=== PATIENT | female | born 1940 | race Caucasian/White ===

== ENCOUNTER → 2016-05-01 | Outpatient (CLI) | payer MEDICARE | END | disposition home or self-care (01) | LOC: PETCFH 08:59 | PROVIDERS: ATTEND Specialist | DX: C51.9 Malignant neoplasm of vulva, unspecified (principal); R91.1 Solitary pulmonary nodule | CPT/HCPCS: 78815; A9552 ==

== ENCOUNTER → 2016-06-14 | Outpatient (CLI) | payer MEDICARE ==
[~2016-06-14] MED LIST: CALC-488 PO; CARB15DR5 EACHEYE; CARB200T PO; CHOL20003 PO; CYANOCOBALAMIN PO; FLUT1BLS INH; GABA300C10 PO; IPRA15SP NAS; LACT10SO28 PO; LISI-167 PO; MULT1TAB60 PO; OMEG-133 PO; OXYB10TA PO; PANT40TA3 PO; PROM118S4 PO; PSYL0.5244 PO; SUCR1TAB26 PO; SULF20OR7 PO; [UNRECOGNIZED DRUG - OTHER] PO
[2016-06-14 14:37] LABS: ASPARTATE AMINO TRANSFERASE 18 U/L (15-37); BLOOD UREA NITROGEN 9 mg/dL (7-18)
== END | disposition home or self-care (01) ==
LOC: STAR 13:17
PROVIDERS: ATTEND Specialist
DX: Z01.818 Encounter for other preprocedural examination (principal); C51.9 Malignant neoplasm of vulva, unspecified; R79.1 Abnormal coagulation profile
CPT/HCPCS: 36415; 80053; 85025; 85610; 85730; 93005

== ENCOUNTER 2016-06-22 13:40 | Inpatient (IN) | payer MEDICARE ==
[~2016-06-22] VITALS: Ht 154.9 cm; Wt 79.4 kg
[2016-06-25] MEDS ORDERED: BUPIVACAINE/PF-EPI 0.25% 1:200K ONE ×2 (06:52→21:44)
[2016-06-25] MEDS ORDERED: LIDOCAINE 1%, 2ML SQ PRN (15:00)
[2016-06-25] MEDS ORDERED: LACTATED RINGERS 1,000 ML IV SCH (15:00)
[2016-06-25] MEDS ORDERED: LIDOCAINE 1%, 2ML ONE (15:02)
[2016-06-25] MEDS ORDERED: morphine SULFATE 10 MG/ML, 1ML IVPush ONE (18:00)
[2016-06-25 19:18] VITALS: BP 136/86
[2016-06-25] MEDS ORDERED: FENTANYL PF 250 MCG/5ML ONE (19:53)
[2016-06-25] MEDS ORDERED: MIDAZOLAM 1 MG/ML, 2ML ONE (19:53)
[2016-06-25] MEDS ORDERED: ONDANSETRON 2MG/ML, 2ML ONE (21:48)
[2016-06-25] MEDS ORDERED: CEFAZOLIN 1,000 MG ONE (21:48)
[2016-06-25] MEDS ORDERED: KETOROLAC 30 MG/1 ML ONE (21:48)
[2016-06-25] MEDS ORDERED: PROPOFOL 10 MG/ML, 20ML ONE (21:48)
[2016-06-25] MEDS ORDERED: LABETALOL 5MG/ML, 20ML ONE (21:48)
[2016-06-25] MEDS ORDERED: ROCURONIUM 10 MG/ML ONE (21:48)
[2016-06-25] MEDS ORDERED: DEXAMETHASONE 4 MG/ML, 1ML ONE (21:48)
[2016-06-25] MEDS ORDERED: OXYcodone 5 MG/5 ML ORAL.SOL UDC PO PRN (23:00)
[2016-06-25] MEDS ORDERED: ALBUTEROL/IPRATROPIUM 2.5MG/0.5MG, 3 ML NPPB PRN (23:00)
[2016-06-25] MEDS ORDERED: ACETAMINOPHEN 325 MG TABLET PO PRN (23:00)
[2016-06-25] MEDS ORDERED: PROMETHAZINE 25 MG/ML, 1ML IV PRN (23:00)
[2016-06-25] MEDS ORDERED: LABETALOL 5MG/ML, 20ML IV PRN (23:00)
[2016-06-25] MEDS ORDERED: hydrALAzine 20 MG/ML, 1ML IV PRN (23:00)
[2016-06-25] MEDS ORDERED: ONDANSETRON 2MG/ML, 2ML IVPush PRN (23:00)
[2016-06-25] MEDS ORDERED: MORPHINE SULFATE 4 MG/ML, 1ML ONE (23:39)
[2016-06-25] MEDS ORDERED: FENTANYL PF 100 MCG/2ML ONE (23:42)
[2016-06-25] MEDS ORDERED: HYDROmorphone 2 MG/ML, 1ML ONE (23:42)
[2016-06-26] MEDS ORDERED: BUPIVACAINE/PF-EPI 0.25% 1:200K INFIL ONE
[2016-06-26] MEDS: FENTANYL PF 100 MCG/2ML IV PRN ×3 (00:01→00:35)
[2016-06-26] MEDS: HYDROmorphone 1 MG/ML, 1ML IV PRN ×4 (00:05→00:30)
[2016-06-26] MEDS ORDERED: PROMETH/COD MC SCH (02:30)
[2016-06-26] MEDS: ONDANSETRON 2MG/ML, 2ML IV PRN (02:36)
[2016-06-26] MEDS: KETOROLAC 30 MG/1 ML IV PRN ×4 (02:36→22:27)
[2016-06-26] MEDS: LACTATED RINGERS 1,000 ML IV SCH ×3 (02:55→23:50)
[2016-06-26 03:13] VITALS: BP 91/57
[2016-06-26 05:53] LABS: BLOOD UREA NITROGEN 9 mg/dL (7-18)
[2016-06-26] MEDS: IPRATROPIUM NASAL 0.03%, 30ML NAS SCH ×4 (06:00→22:25)
[2016-06-26] MEDS: OXYcodone/APAP 5/325MG TABLET PO PRN ×3 (06:17→22:24)
[2016-06-26] MEDS ORDERED: SODIUM CHLORIDE 0.9%, 500ML IVBOLUS ONE ×2 (08:30→18:30)
[2016-06-26] MEDS: FLUTICASONE/VILANTEROL 200-25MCG/INH INH SCH (08:41)
[2016-06-26] MEDS: SUCRALFATE 1 GM/10 ML UDC PO SCH ×4 (08:42→22:25)
[2016-06-26] MEDS: CARBAMAZEPINE 200 MG TABLET PO SCH ×4 (08:46→22:26)
[2016-06-26] MEDS: PANTOPROZOLE 40MG TABLET PO SCH ×2 (08:47→22:26)
[2016-06-26] MEDS: CHOLECALCIFEROL 1,000 UNIT TABLET PO SCH (08:47)
[2016-06-26] MEDS: OXYBUTYNIN CHLORIDE 5 MG TABLET PO SCH ×2 (08:47→22:24)
[2016-06-26] MEDS: CYANOCOBALOMIN 100MCG TABLET PO SCH (08:47)
[2016-06-26] MEDS: ARTIFICIAL TEARS OPHTH SOLN 15ML EACHEYE SCH ×2 (08:48→22:25)
[2016-06-26] MEDS: GABAPENTIN 300 MG CAPSULE PO SCH ×3 (08:48→22:26)
[2016-06-26] MEDS: MULTIVITAMIN 1 TABLET PO SCH (08:48)
[2016-06-26] MEDS: OMEGA-3/FISH OIL CAPSULE PO SCH (08:48)
[2016-06-26] MEDS: PSYLLIUM PACKET PO SCH (08:49)
[2016-06-26] MEDS: CALCIUM/VITAMIN D3 250-125 TABLET PO SCH (08:49)
[2016-06-26] MEDS: LACTULOSE 20 GM/30 ML UDC PO SCH ×3 (08:49→22:25)
[2016-06-26 08:51] VITALS: BP 92/59
[2016-06-26] MEDS: LISINOPRIL 10 MG TABLET PO SCH (08:54)
[2016-06-26] MEDS: ENOXAPARIN 40 MG/0.4 ML SQ SCH (11:59)
[2016-06-26 13:19] VITALS: BP 92/54
[2016-06-26 19:32] VITALS: BP 96/58
[2016-06-27] MEDS: PROMETHAZINE/COD. 10MG/6.25MG/5 ML ORAL SOL PO SCH ×2 (00:23→23:28)
[2016-06-27 01:36] VITALS: BP 96/57
[2016-06-27 05:57] LABS: BLOOD UREA NITROGEN 7 mg/dL (7-18)
[2016-06-27] MEDS: ONDANSETRON 2MG/ML, 2ML IV PRN ×2 (06:00→21:31)
[2016-06-27] MEDS: KETOROLAC 30 MG/1 ML IV PRN ×2 (06:00→11:40)
[2016-06-27 07:53] VITALS: BP 99/60
[2016-06-27] MEDS: OXYcodone/APAP 5/325MG TABLET PO PRN ×3 (08:04→21:46)
[2016-06-27] MEDS: SUCRALFATE 1 GM/10 ML UDC PO SCH ×4 (08:04→21:46)
[2016-06-27] MEDS: ARTIFICIAL TEARS OPHTH SOLN 15ML EACHEYE SCH ×2 (08:05→21:00)
[2016-06-27] MEDS: IPRATROPIUM NASAL 0.03%, 30ML NAS SCH ×4 (08:05→21:00)
[2016-06-27] MEDS: MULTIVITAMIN 1 TABLET PO SCH (08:06)
[2016-06-27] MEDS: OMEGA-3/FISH OIL CAPSULE PO SCH (08:06)
[2016-06-27] MEDS: PSYLLIUM PACKET PO SCH (08:06)
[2016-06-27] MEDS: LISINOPRIL 10 MG TABLET PO SCH (08:06)
[2016-06-27] MEDS: FLUTICASONE/VILANTEROL 200-25MCG/INH INH SCH (08:06)
[2016-06-27] MEDS: CALCIUM/VITAMIN D3 250-125 TABLET PO SCH (08:06)
[2016-06-27] MEDS: OXYBUTYNIN CHLORIDE 5 MG TABLET PO SCH ×2 (08:07→21:46)
[2016-06-27] MEDS: CARBAMAZEPINE 200 MG TABLET PO SCH ×4 (08:07→21:46)
[2016-06-27] MEDS: LACTULOSE 20 GM/30 ML UDC PO SCH ×3 (08:07→21:45)
[2016-06-27] MEDS: PANTOPROZOLE 40MG TABLET PO SCH ×2 (08:08→21:46)
[2016-06-27] MEDS: CHOLECALCIFEROL 1,000 UNIT TABLET PO SCH (08:08)
[2016-06-27] MEDS: GABAPENTIN 300 MG CAPSULE PO SCH ×3 (08:08→21:46)
[2016-06-27] MEDS: CYANOCOBALOMIN 100MCG TABLET PO SCH (08:08)
[2016-06-27] MEDS: ENOXAPARIN 40 MG/0.4 ML SQ SCH (12:12)
[2016-06-27] MEDS: LACTATED RINGERS 1,000 ML IV SCH (12:49)
[2016-06-27 13:54] VITALS: BP 103/62
[2016-06-27 18:27] VITALS: BP 120/66
[2016-06-28 02:20] VITALS: BP 105/67
[2016-06-28] MEDS: PROMETHAZINE 25 MG/ML, 1ML IM PRN ×2 (02:27→08:20)
[2016-06-28] MEDS: LACTATED RINGERS 1,000 ML IV SCH ×2 (04:25→22:24)
[2016-06-28] MEDS: IPRATROPIUM NASAL 0.03%, 30ML NAS SCH ×4 (06:00→22:23)
[2016-06-28] MEDS: ONDANSETRON 2MG/ML, 2ML IV PRN ×2 (06:47→22:24)
[2016-06-28 07:27] VITALS: BP 104/66
[2016-06-28] MEDS: OXYBUTYNIN CHLORIDE 5 MG TABLET PO SCH ×3 (08:00→22:25)
[2016-06-28] MEDS: SUCRALFATE 1 GM/10 ML UDC PO SCH ×5 (08:00→22:25)
[2016-06-28] MEDS: GABAPENTIN 300 MG CAPSULE PO SCH ×4 (08:00→22:25)
[2016-06-28] MEDS: PANTOPROZOLE 40MG TABLET PO SCH ×3 (08:00→22:25)
[2016-06-28] MEDS: PSYLLIUM PACKET PO SCH ×2 (08:00→08:08)
[2016-06-28] MEDS: CARBAMAZEPINE 200 MG TABLET PO SCH ×5 (08:00→22:26)
[2016-06-28] MEDS: LACTULOSE 20 GM/30 ML UDC PO SCH ×4 (08:00→22:25)
[2016-06-28] MEDS: CYANOCOBALOMIN 100MCG TABLET PO SCH ×2 (08:00→08:07)
[2016-06-28] MEDS: MULTIVITAMIN 1 TABLET PO SCH ×2 (08:00→08:07)
[2016-06-28] MEDS: OMEGA-3/FISH OIL CAPSULE PO SCH ×2 (08:00→08:06)
[2016-06-28] MEDS: CHOLECALCIFEROL 1,000 UNIT TABLET PO SCH ×2 (08:00→08:06)
[2016-06-28] MEDS: CALCIUM/VITAMIN D3 250-125 TABLET PO SCH ×2 (08:00→08:08)
[2016-06-28] MEDS: LISINOPRIL 10 MG TABLET PO SCH (08:07)
[2016-06-28] MEDS: ARTIFICIAL TEARS OPHTH SOLN 15ML EACHEYE SCH ×2 (08:09→22:23)
[2016-06-28] MEDS: FLUTICASONE/VILANTEROL 200-25MCG/INH INH SCH (08:09)
[2016-06-28] MEDS: ENOXAPARIN 40 MG/0.4 ML SQ SCH (12:09)
[2016-06-28 14:02] VITALS: BP 122/72
[2016-06-28 20:47] VITALS: BP 107/67
[2016-06-28] MEDS: KETOROLAC 30 MG/1 ML IV PRN (22:24)
[2016-06-28] MEDS: PROMETHAZINE/COD. 10MG/6.25MG/5 ML ORAL SOL PO SCH (22:25)
[2016-06-28] MEDS: FAMOTIDINE 20 MG TABLET PO SCH (22:25)
[2016-06-29 02:17] VITALS: BP 100/65
[2016-06-29] MEDS: SUCRALFATE 1 GM/10 ML UDC PO SCH ×4 (05:41→21:42)
[2016-06-29] MEDS: CARBAMAZEPINE 200 MG TABLET PO SCH ×4 (05:41→21:44)
[2016-06-29] MEDS: IPRATROPIUM NASAL 0.03%, 30ML NAS SCH ×4 (06:07→21:51)
[2016-06-29 08:05] VITALS: BP 124/65
[2016-06-29] MEDS: LACTULOSE 20 GM/30 ML UDC PO SCH ×3 (08:48→21:43)
[2016-06-29] MEDS: PSYLLIUM PACKET PO SCH (08:48)
[2016-06-29] MEDS: OMEGA-3/FISH OIL CAPSULE PO SCH (08:48)
[2016-06-29] MEDS: OXYBUTYNIN CHLORIDE 5 MG TABLET PO SCH ×2 (08:48→21:43)
[2016-06-29] MEDS: FAMOTIDINE 20 MG TABLET PO SCH ×2 (08:49→21:43)
[2016-06-29] MEDS: LISINOPRIL 10 MG TABLET PO SCH (08:49)
[2016-06-29] MEDS: MULTIVITAMIN 1 TABLET PO SCH (08:49)
[2016-06-29] MEDS: GABAPENTIN 300 MG CAPSULE PO SCH ×3 (08:49→21:43)
[2016-06-29] MEDS: CALCIUM/VITAMIN D3 250-125 TABLET PO SCH (08:49)
[2016-06-29] MEDS: CYANOCOBALOMIN 100MCG TABLET PO SCH (08:49)
[2016-06-29] MEDS: PANTOPROZOLE 40MG TABLET PO SCH ×2 (08:49→21:44)
[2016-06-29] MEDS: CHOLECALCIFEROL 1,000 UNIT TABLET PO SCH (08:49)
[2016-06-29] MEDS: ARTIFICIAL TEARS OPHTH SOLN 15ML EACHEYE SCH ×2 (08:54→21:49)
[2016-06-29] MEDS: FLUTICASONE/VILANTEROL 200-25MCG/INH INH SCH (08:54)
[2016-06-29] MEDS: LACTATED RINGERS 1,000 ML IV SCH ×2 (10:22→20:05)
[2016-06-29] MEDS: ENOXAPARIN 40 MG/0.4 ML SQ SCH (11:35)
[2016-06-29] MEDS: ONDANSETRON 2MG/ML, 2ML IV PRN (11:40)
[2016-06-29 13:35] VITALS: BP 122/65
[2016-06-29] MEDS: KETOROLAC 30 MG/1 ML IV PRN ×2 (13:39→19:57)
[2016-06-29 21:25] VITALS: BP 121/72
[2016-06-29] MEDS: PROMETHAZINE/COD. 10MG/6.25MG/5 ML ORAL SOL PO SCH (21:43)
[2016-06-29] MEDS: FAMOTIDINE 20 MG/2 ML IVPush SCH (21:48)
[2016-06-30] MEDS: KETOROLAC 30 MG/1 ML IV PRN ×4 (02:15→21:05)
[2016-06-30 03:34] VITALS: BP 106/67
[2016-06-30 05:20] LABS: BLOOD UREA NITROGEN 14 mg/dL (7-18)
[2016-06-30] MEDS: SUCRALFATE 1 GM/10 ML UDC PO SCH ×4 (05:36→21:00)
[2016-06-30] MEDS: CARBAMAZEPINE 200 MG TABLET PO SCH ×4 (05:36→21:00)
[2016-06-30] MEDS: LACTATED RINGERS 1,000 ML IV SCH ×2 (05:39→16:17)
[2016-06-30] MEDS: IPRATROPIUM NASAL 0.03%, 30ML NAS SCH ×4 (05:40→21:00)
[2016-06-30 06:50] VITALS: BP 128/69
[2016-06-30] MEDS: MULTIVITAMIN 1 TABLET PO SCH (08:18)
[2016-06-30] MEDS: OMEGA-3/FISH OIL CAPSULE PO SCH (08:18)
[2016-06-30] MEDS: PSYLLIUM PACKET PO SCH (08:18)
[2016-06-30] MEDS: LISINOPRIL 10 MG TABLET PO SCH (08:18)
[2016-06-30] MEDS: CALCIUM/VITAMIN D3 250-125 TABLET PO SCH (08:18)
[2016-06-30] MEDS: GABAPENTIN 300 MG CAPSULE PO SCH ×3 (08:18→21:00)
[2016-06-30] MEDS: OXYBUTYNIN CHLORIDE 5 MG TABLET PO SCH ×2 (08:18→21:00)
[2016-06-30] MEDS: FAMOTIDINE 20 MG TABLET PO SCH ×2 (08:18→21:00)
[2016-06-30] MEDS: LACTULOSE 20 GM/30 ML UDC PO SCH ×3 (08:18→21:00)
[2016-06-30] MEDS: CHOLECALCIFEROL 1,000 UNIT TABLET PO SCH (08:19)
[2016-06-30] MEDS: PANTOPROZOLE 40MG TABLET PO SCH ×2 (08:19→21:00)
[2016-06-30] MEDS: CYANOCOBALOMIN 100MCG TABLET PO SCH (08:19)
[2016-06-30] MEDS: FLUTICASONE/VILANTEROL 200-25MCG/INH INH SCH (08:27)
[2016-06-30] MEDS: ARTIFICIAL TEARS OPHTH SOLN 15ML EACHEYE SCH ×2 (08:27→21:00)
[2016-06-30] MEDS: FAMOTIDINE 20 MG/2 ML IVPush SCH ×2 (08:32→21:05)
[2016-06-30] MEDS: ONDANSETRON 2MG/ML, 2ML IV PRN (11:11)
[2016-06-30] MEDS: ENOXAPARIN 40 MG/0.4 ML SQ SCH (12:12)
[2016-06-30 12:50] VITALS: BP 119/68
[2016-06-30 20:36] VITALS: BP 123/59
[2016-06-30] MEDS: PROMETHAZINE/COD. 10MG/6.25MG/5 ML ORAL SOL PO SCH (21:00)
[2016-07-01 01:22] VITALS: BP 124/61
[2016-07-01] MEDS: LACTATED RINGERS 1,000 ML IV SCH ×3 (01:36→22:10)
[2016-07-01] MEDS: KETOROLAC 30 MG/1 ML IVPush PRN ×3 (03:32→18:58)
[2016-07-01] MEDS: SUCRALFATE 1 GM/10 ML UDC PO SCH ×4 (06:00→21:55)
[2016-07-01] MEDS: IPRATROPIUM NASAL 0.03%, 30ML NAS SCH ×4 (06:00→21:55)
[2016-07-01] MEDS: CARBAMAZEPINE 200 MG TABLET PO SCH ×4 (06:00→21:56)
[2016-07-01] MEDS: FAMOTIDINE 20 MG/2 ML IVPush SCH ×2 (08:14→21:55)
[2016-07-01] MEDS: FLUTICASONE/VILANTEROL 200-25MCG/INH INH SCH (08:14)
[2016-07-01] MEDS: ARTIFICIAL TEARS OPHTH SOLN 15ML EACHEYE SCH ×2 (08:14→21:55)
[2016-07-01] MEDS: PANTOPROZOLE 40MG TABLET PO SCH ×2 (09:00→21:56)
[2016-07-01] MEDS: OXYBUTYNIN CHLORIDE 5 MG TABLET PO SCH ×2 (09:00→21:56)
[2016-07-01] MEDS: CYANOCOBALOMIN 100MCG TABLET PO SCH (09:00)
[2016-07-01] MEDS: FAMOTIDINE 20 MG TABLET PO SCH ×2 (09:00→21:56)
[2016-07-01] MEDS: PSYLLIUM PACKET PO SCH (09:00)
[2016-07-01] MEDS: CHOLECALCIFEROL 1,000 UNIT TABLET PO SCH (09:00)
[2016-07-01] MEDS: LACTULOSE 20 GM/30 ML UDC PO SCH ×3 (09:00→23:36)
[2016-07-01] MEDS: CALCIUM/VITAMIN D3 250-125 TABLET PO SCH (09:00)
[2016-07-01] MEDS: GABAPENTIN 300 MG CAPSULE PO SCH ×3 (09:00→21:56)
[2016-07-01] MEDS: MULTIVITAMIN 1 TABLET PO SCH (09:00)
[2016-07-01] MEDS: OMEGA-3/FISH OIL CAPSULE PO SCH (09:00)
[2016-07-01] MEDS: LISINOPRIL 10 MG TABLET PO SCH (09:00)
[2016-07-01 09:02] VITALS: BP 123/70
[2016-07-01] MEDS: ENOXAPARIN 40 MG/0.4 ML SQ SCH (12:03)
[2016-07-01 13:49] VITALS: BP 119/67
[2016-07-01 19:48] VITALS: BP 108/63
[2016-07-01] MEDS: PROMETHAZINE/COD. 10MG/6.25MG/5 ML ORAL SOL PO SCH (23:36)
[2016-07-02] MEDS: KETOROLAC 30 MG/1 ML IVPush PRN ×3 (01:20→17:24)
[2016-07-02 03:41] VITALS: BP 131/74
[2016-07-02] MEDS: CARBAMAZEPINE 200 MG TABLET PO SCH ×4 (05:07→20:39)
[2016-07-02] MEDS: SUCRALFATE 1 GM/10 ML UDC PO SCH ×4 (05:07→20:38)
[2016-07-02] MEDS: IPRATROPIUM NASAL 0.03%, 30ML NAS SCH ×4 (05:07→20:38)
[2016-07-02 07:57] VITALS: BP 129/69
[2016-07-02] MEDS: PSYLLIUM PACKET PO SCH (09:00)
[2016-07-02] MEDS: OXYBUTYNIN CHLORIDE 5 MG TABLET PO SCH ×2 (09:00→20:38)
[2016-07-02] MEDS: OMEGA-3/FISH OIL CAPSULE PO SCH (09:00)
[2016-07-02] MEDS: MULTIVITAMIN 1 TABLET PO SCH (09:00)
[2016-07-02] MEDS: FAMOTIDINE 20 MG TABLET PO SCH ×2 (09:00→20:38)
[2016-07-02] MEDS: CYANOCOBALOMIN 100MCG TABLET PO SCH (09:00)
[2016-07-02] MEDS: CHOLECALCIFEROL 1,000 UNIT TABLET PO SCH (09:00)
[2016-07-02] MEDS: CALCIUM/VITAMIN D3 250-125 TABLET PO SCH (09:00)
[2016-07-02] MEDS: GABAPENTIN 300 MG CAPSULE PO SCH ×3 (09:00→20:38)
[2016-07-02] MEDS: LISINOPRIL 10 MG TABLET PO SCH (09:00)
[2016-07-02] MEDS: PANTOPROZOLE 40MG TABLET PO SCH ×2 (09:00→20:38)
[2016-07-02] MEDS: LACTULOSE 20 GM/30 ML UDC PO SCH ×3 (09:49→20:38)
[2016-07-02] MEDS: FAMOTIDINE 20 MG/2 ML IVPush SCH ×2 (09:50→23:50)
[2016-07-02] MEDS: FLUTICASONE/VILANTEROL 200-25MCG/INH INH SCH (09:50)
[2016-07-02] MEDS: ARTIFICIAL TEARS OPHTH SOLN 15ML EACHEYE SCH ×2 (09:51→20:33)
[2016-07-02] MEDS: LACTATED RINGERS 1,000 ML IV SCH ×2 (10:12→20:32)
[2016-07-02] MEDS: ENOXAPARIN 40 MG/0.4 ML SQ SCH (12:07)
[2016-07-02 13:23] VITALS: BP 124/70
[2016-07-02 18:59] VITALS: BP 124/74
[2016-07-02] MEDS: PROMETHAZINE/COD. 10MG/6.25MG/5 ML ORAL SOL PO SCH (23:50)
[2016-07-03] MEDS: KETOROLAC 30 MG/1 ML IVPush PRN (00:02)
[2016-07-03 01:53] VITALS: BP 128/74
[2016-07-03] MEDS: OXYcodone/APAP 5/325MG TABLET PO PRN ×3 (02:02→15:36)
[2016-07-03] MEDS: LACTATED RINGERS 1,000 ML IV SCH ×2 (06:26→17:09)
[2016-07-03 08:00] VITALS: BP 126/71
[2016-07-03] MEDS: FAMOTIDINE 20 MG/2 ML IVPush SCH (09:00)
[2016-07-03] MEDS: OMEGA-3/FISH OIL CAPSULE PO SCH (09:00)
[2016-07-03] MEDS: LISINOPRIL 10 MG TABLET PO SCH (09:00)
[2016-07-03] MEDS: PSYLLIUM PACKET PO SCH (09:00)
[2016-07-03] MEDS: MULTIVITAMIN 1 TABLET PO SCH (09:00)
[2016-07-03] MEDS: CHOLECALCIFEROL 1,000 UNIT TABLET PO SCH (09:00)
[2016-07-03] MEDS: LACTULOSE 20 GM/30 ML UDC PO SCH ×3 (09:00→21:00)
[2016-07-03] MEDS: CARBAMAZEPINE 200 MG TABLET PO SCH ×4 (09:24→21:00)
[2016-07-03] MEDS: CALCIUM/VITAMIN D3 250-125 TABLET PO SCH (09:24)
[2016-07-03] MEDS: CYANOCOBALOMIN 100MCG TABLET PO SCH (09:24)
[2016-07-03] MEDS: FAMOTIDINE 20 MG TABLET PO SCH (09:24)
[2016-07-03] MEDS: OXYBUTYNIN CHLORIDE 5 MG TABLET PO SCH ×2 (09:25→21:00)
[2016-07-03] MEDS: GABAPENTIN 300 MG CAPSULE PO SCH ×3 (09:25→21:00)
[2016-07-03] MEDS: SUCRALFATE 1 GM/10 ML UDC PO SCH ×4 (09:25→21:00)
[2016-07-03] MEDS: IPRATROPIUM NASAL 0.03%, 30ML NAS SCH ×4 (09:25→21:00)
[2016-07-03] MEDS: FLUTICASONE/VILANTEROL 200-25MCG/INH INH SCH (09:26)
[2016-07-03] MEDS: ARTIFICIAL TEARS OPHTH SOLN 15ML EACHEYE SCH ×2 (09:26→21:00)
[2016-07-03] MEDS: PANTOPROZOLE 40MG TABLET PO SCH ×2 (09:27→21:00)
[2016-07-03 10:12] LABS: BLOOD UREA NITROGEN 3 mg/dL (7-18)
[2016-07-03] MEDS: ENOXAPARIN 40 MG/0.4 ML SQ SCH (11:41)
[2016-07-03 13:21] VITALS: BP 102/63
[2016-07-04] MEDS: FAMOTIDINE 20 MG/2 ML IVPush SCH ×3 (00:37→21:41)
[2016-07-04] MEDS: PROMETHAZINE/COD. 10MG/6.25MG/5 ML ORAL SOL PO SCH ×2 (00:38→21:41)
[2016-07-04] MEDS: FAMOTIDINE 20 MG TABLET PO SCH ×3 (00:38→21:00)
[2016-07-04] MEDS: LACTATED RINGERS 1,000 ML IV SCH ×3 (01:50→13:37)
[2016-07-04 02:32] VITALS: BP 127/68
[2016-07-04 06:50] VITALS: BP 129/73
[2016-07-04] MEDS: FLUTICASONE/VILANTEROL 200-25MCG/INH INH SCH (08:42)
[2016-07-04] MEDS: ARTIFICIAL TEARS OPHTH SOLN 15ML EACHEYE SCH ×2 (08:43→21:00)
[2016-07-04] MEDS: IPRATROPIUM NASAL 0.03%, 30ML NAS SCH ×4 (08:43→21:00)
[2016-07-04] MEDS: SUCRALFATE 1 GM/10 ML UDC PO SCH ×4 (08:44→21:41)
[2016-07-04] MEDS: CARBAMAZEPINE 200 MG TABLET PO SCH ×4 (08:46→21:42)
[2016-07-04] MEDS: LISINOPRIL 10 MG TABLET PO SCH (08:46)
[2016-07-04] MEDS: LACTULOSE 20 GM/30 ML UDC PO SCH ×3 (08:46→21:00)
[2016-07-04] MEDS: GABAPENTIN 300 MG CAPSULE PO SCH ×3 (08:46→21:43)
[2016-07-04] MEDS: MULTIVITAMIN 1 TABLET PO SCH (08:47)
[2016-07-04] MEDS: OMEGA-3/FISH OIL CAPSULE PO SCH (08:48)
[2016-07-04] MEDS: CALCIUM/VITAMIN D3 250-125 TABLET PO SCH (08:48)
[2016-07-04] MEDS: PANTOPROZOLE 40MG TABLET PO SCH ×2 (08:48→21:42)
[2016-07-04] MEDS: OXYBUTYNIN CHLORIDE 5 MG TABLET PO SCH ×2 (08:48→21:43)
[2016-07-04] MEDS: CHOLECALCIFEROL 1,000 UNIT TABLET PO SCH (08:49)
[2016-07-04] MEDS: PSYLLIUM PACKET PO SCH (08:49)
[2016-07-04] MEDS: CYANOCOBALOMIN 100MCG TABLET PO SCH (08:49)
[2016-07-04 12:21] VITALS: BP 120/72
[2016-07-04] MEDS: ENOXAPARIN 40 MG/0.4 ML SQ SCH (12:34)
[2016-07-04] MEDS: POTASSIUM CHLORIDE 20 MEQ TAB.ER.PRT PO SCH ×2 (17:15→21:42)
[2016-07-04 19:20] VITALS: BP 116/73
[2016-07-05 01:39] VITALS: BP 126/72
[2016-07-05 05:35] LABS: BLOOD UREA NITROGEN 6 mg/dL (7-18)
[2016-07-05] MEDS: IPRATROPIUM NASAL 0.03%, 30ML NAS SCH ×2 (06:00→11:00)
[2016-07-05] MEDS: CARBAMAZEPINE 200 MG TABLET PO SCH ×2 (06:27→10:27)
[2016-07-05] MEDS: SUCRALFATE 1 GM/10 ML UDC PO SCH ×2 (06:27→10:29)
[2016-07-05 08:55] VITALS: BP 108/58
[2016-07-05] MEDS: ARTIFICIAL TEARS OPHTH SOLN 15ML EACHEYE SCH (09:00)
[2016-07-05] MEDS: LACTATED RINGERS 1,000 ML IV SCH (10:26)
[2016-07-05] MEDS: FLUTICASONE/VILANTEROL 200-25MCG/INH INH SCH (10:26)
[2016-07-05] MEDS: OMEGA-3/FISH OIL CAPSULE PO SCH (10:27)
[2016-07-05] MEDS: FAMOTIDINE 20 MG TABLET PO SCH (10:27)
[2016-07-05] MEDS: CALCIUM/VITAMIN D3 250-125 TABLET PO SCH (10:27)
[2016-07-05] MEDS: PANTOPROZOLE 40MG TABLET PO SCH (10:27)
[2016-07-05] MEDS: GABAPENTIN 300 MG CAPSULE PO SCH (10:27)
[2016-07-05] MEDS: OXYBUTYNIN CHLORIDE 5 MG TABLET PO SCH (10:27)
[2016-07-05] MEDS: CHOLECALCIFEROL 1,000 UNIT TABLET PO SCH (10:27)
[2016-07-05] MEDS: POTASSIUM CHLORIDE 20 MEQ TAB.ER.PRT PO SCH (10:27)
[2016-07-05] MEDS: FAMOTIDINE 20 MG/2 ML IVPush SCH (10:28)
[2016-07-05] MEDS: MULTIVITAMIN 1 TABLET PO SCH (10:28)
[2016-07-05] MEDS: LISINOPRIL 10 MG TABLET PO SCH (10:28)
[2016-07-05] MEDS: LACTULOSE 20 GM/30 ML UDC PO SCH (10:28)
[2016-07-05] MEDS: PSYLLIUM PACKET PO SCH (10:28)
[2016-07-05] MEDS: CYANOCOBALOMIN 100MCG TABLET PO SCH (10:28)
[2016-07-05] MEDS: ENOXAPARIN 40 MG/0.4 ML SQ SCH (10:34)
[2016-07-05] MEDS ORDERED: OXYC1TAB7 PO (12:36)
[2016-07-05] MEDS ORDERED: ONDA-39 PO (12:38)
[2016-07-05 13:35] VITALS: BP 129/72
== END 2016-07-05 14:19 | disposition home health service (06) | DRG 746 ==
LOC: ORIP 06-25 13:01 → 4NOR 06-25 17:50
PROVIDERS: ADMIT Specialist; ATTEND Specialist
PROC: 0UT Female Reproductive System, Resection (ICD-10-PCS; 2016-06-25)
PROC: 07BJ0ZX Excision of Left Inguinal Lymphatic, Open Approach, Diagnostic (ICD-10-PCS; 2016-06-25)
PROC: 0UTM0ZZ Resection of Vulva, Open Approach (ICD-10-PCS; principal; 2016-06-25 19:00)
DX: C51.9 Malignant neoplasm of vulva, unspecified (principal); K56.7 Ileus, unspecified; E87.6 Hypokalemia; F32.9 Major depressive disorder, single episode, unspecified; J45.909 Unspecified asthma, uncomplicated; K21.9 Gastro-esophageal reflux disease without esophagitis; I10 Essential (primary) hypertension; Z87.891 Personal history of nicotine dependence
CPT/HCPCS: 36415; 71010; 74000; 80048; 85025; 86850; 86900; 86923; 88305; 88307; C1729; J0690; J1100; J1170; J1650; J1885; J2250; J2405; J2550; J2704; J3010; J3490; J2270; J7040; J7120; S0028

== ENCOUNTER → 2016-11-13 | Outpatient (CLI) | payer MEDICARE ==
[~2016-11-13] MED LIST changes: +CHOL2000 PO; -CHOL20003 PO; +ONDA4TAB12 PO; +OXYC1TAB7 PO; -SUCR1TAB26 PO; +SUCR1TAB33 PO
== END | disposition home or self-care (01) ==
LOC: CFH 14:32
PROVIDERS: ATTEND Internal Medicine
DX: R22.32 Localized swelling, mass and lump, left upper limb (principal); I82.432 Acute embolism and thrombosis of left popliteal vein

== ENCOUNTER → 2017-01-02 | Outpatient (CLI) | payer MEDICARE ==
[~2017-01-02] MED LIST changes: +LIDOCAINE 1%, 20ML ONE
== END | disposition home or self-care (01) ==
LOC: RAD 07:14 → EDSTATUS 07:30
PROVIDERS: ATTEND Specialist
DX: R59.9 Enlarged lymph nodes, unspecified (principal)
CPT/HCPCS: 10160; 38505; 76942; 87015; 87070; 87075; 87102; 87116; 87205; 87206; 88112; 88305; J3490

== ENCOUNTER → 2017-01-14 | Outpatient (CLI) | payer MEDICARE ==
[~2017-01-14] MED LIST changes: +AMOX1TAB64 PO; +ASCO500T12 PO; +ASCO500T8 PO; -LIDOCAINE 1%, 20ML ONE; +WARF5TAB7 PO
== END ==
LOC: RAD 17:14
PROVIDERS: ATTEND Internal Medicine
DX: R19.09 Other intra-abdominal and pelvic swelling, mass and lump (principal); R91.1 Solitary pulmonary nodule; Z85.44 Personal history of malignant neoplasm of other female genital organs
CPT/HCPCS: 74176

== ENCOUNTER 2017-01-23 16:46 | Inpatient (IN) | payer MEDICARE ==
[~2017-01-23] VITALS: Ht 157.5 cm; Wt 75.3 kg
[~2017-01-23 16:46] MED LIST changes: -ASCO500T12 PO
[2017-01-23] MEDS ORDERED: MORPHINE SULFATE 4 MG/ML, 1ML IVPush PRN (17:00)
[2017-01-23] MEDS ORDERED: SODIUM CHLORIDE FLUSH 10ML SYR IVF ONE (17:00)
[2017-01-23] MEDS ORDERED: ONDANSETRON 2MG/ML, 2ML IVPush ONE (17:00)
[2017-01-23] MEDS ORDERED: ONDANSETRON 2MG/ML, 2ML ONE (17:32)
[2017-01-23] MEDS ORDERED: MORPHINE SULFATE 4 MG/ML, 1ML ONE (17:32)
[2017-01-23 17:34] LABS: INTERNATIONAL NORMALIZED RATIO 2.38 (0.93-1.1); PROTHROMBIN TIME 24.1 Seconds (9.6-11.5)
[2017-01-23 17:38] LABS: ALBUMIN 2.6 g/dL (3.4-5.0); ANION GAP 9 mmol/L (5-15); CALCIUM 11.7 mg/dL (8.5-10.1); CHLORIDE 103 mmol/L (98-107); MEAN CORPUSCULAR HEMOGLOBIN 24.5 pg (27.0-34.8); MEAN CORPUSCULAR HGB CONC 31.3 g/dL (32.4-35.8); MEAN CORPUSCULAR VOLUME 78.3 fL (80-100); MEAN PLATELET VOLUME 7.4 fL (7.4-10.4); PLATELET COUNT 569 x10^3/uL (130-400); RED BLOOD COUNT 4.46 x10^6/uL (3.82-5.3); RED CELL DISTRIBUTION WIDTH 20.3 % (9.6-15.2)
[2017-01-23 17:57] LABS: BASOPHILS # (AUTO) 0.11 x10^3/uL (0-0.1); BASOPHILS % (AUTO) 1 % (0-1); EOSINOPHILS # (AUTO) 0.09 x10^3/uL (0-0.4); EOSINOPHILS % (AUTO) 1 % (1-7); LYMPHOCYTES # (AUTO) 1.72 x10^3/uL (1-3.4); LYMPHOCYTES % (AUTO) 13 % (22-44); MD MORPH REVIEW ONLY; MONOCYTES % (AUTO) 4 % (2-9); NEUTROPHILS # (AUTO) 10.37 x10^3/uL (1.8-6.8); NEUTROPHILS % (AUTO) 81 % (42-75)
[2017-01-23 17:59] LABS: <PLATELET ESTIMATE> INCREASED; <PLT MORPHOLOGY> NORMAL PLT MORPH; ANISOCYTOSIS 1+; MICROCYTOSIS 1+; POLYCHROMASIA 1+
[2017-01-23] MEDS ORDERED: AMPICILLIN/SULBACTAM 3 GM in SODIUM CHLORIDE 0.9% 100 ML IV ONE (18:00)
[2017-01-23] MEDS ORDERED: ASCO500T12 PO (18:29)
[2017-01-23] MEDS ORDERED: DOCUSATE 100 MG CAPSULE PO PRN (19:30)
[2017-01-23] MEDS ORDERED: ONDANSETRON ODT 4 MG PO PRN (19:30)
[2017-01-23] MEDS ORDERED: ENALAPRILAT 1.25 MG/ML, 2ML IVPush PRN (19:30)
[2017-01-23] MEDS ORDERED: OXYcodone/APAP 5/325MG TABLET ONE (20:44)
[2017-01-23] MEDS: OXYcodone/APAP 5/325MG TABLET PO SCH (20:59)
[2017-01-23] MEDS ORDERED: WARFARIN 5 MG TABLET PO-COUM SCH (21:00)
[2017-01-23] MEDS ORDERED: PANTOPROZOLE 40MG TABLET PO SCH (21:00)
[2017-01-23 21:37] VITALS: BP 156/84
[2017-01-24] MEDS: SUCRALFATE 1 GM TABLET PO SCH ×5 (00:35→22:20)
[2017-01-24] MEDS: LACTULOSE 10 GM/15 ML UDC PO SCH ×4 (00:35→22:20)
[2017-01-24] MEDS: GABAPENTIN 300 MG CAPSULE PO SCH ×4 (00:35→22:19)
[2017-01-24] MEDS: OXYBUTYNIN CHLORIDE 5 MG TABLET PO SCH ×3 (00:36→22:19)
[2017-01-24] MEDS: OXYcodone/APAP 5/325MG TABLET PO SCH ×6 (00:39→22:19)
[2017-01-24 03:41] VITALS: BP 136/76
[2017-01-24 05:13] LABS: ANION GAP 6 mmol/L (5-15); CALCIUM 11.9 mg/dL (8.5-10.1); CHLORIDE 108 mmol/L (98-107); CREATININE 0.74 mg/dL (0.55-1.02)
[2017-01-24 05:30] LABS: MEAN CORPUSCULAR HEMOGLOBIN 24.7 pg (27.0-34.8); MEAN CORPUSCULAR HGB CONC 31.2 g/dL (32.4-35.8); MEAN CORPUSCULAR VOLUME 79.1 fL (80-100); MEAN PLATELET VOLUME 7.3 fL (7.4-10.4); PLATELET COUNT 476 x10^3/uL (130-400); RED CELL DISTRIBUTION WIDTH 20.1 % (9.6-15.2)
[2017-01-24 05:56] LABS: BASOPHILS # (AUTO) 0.11 x10^3/uL (0-0.1); BASOPHILS % (AUTO) 1 % (0-1); EOSINOPHILS % (AUTO) 2 % (1-7); LYMPHOCYTES # (AUTO) 2.11 x10^3/uL (1-3.4); LYMPHOCYTES % (AUTO) 20 % (22-44); MD SCAN; MONOCYTES # (AUTO) 0.91 x10^3/uL (0.2-0.8); MONOCYTES % (AUTO) 9 % (2-9); NEUTROPHILS # (AUTO) 7.11 x10^3/uL (1.8-6.8); NEUTROPHILS % (AUTO) 68 % (42-75)
[2017-01-24 07:18] VITALS: BP 100/60
[2017-01-24] MEDS: CALCIUM CARBONATE 500 MG TABLET PO SCH ×2 (07:57→16:58)
[2017-01-24] MEDS: PANTOPROZOLE 40MG TABLET PO SCH ×2 (07:57→16:58)
[2017-01-24] MEDS: FLUTICASONE/VILANTEROL 200-25MCG/INH INH SCH (09:00)
[2017-01-24] MEDS: AMOXICILLIN/CLAV 875-125MG TABLET PO SCH ×2 (10:01→22:19)
[2017-01-24] MEDS: CHOLECALCIFEROL 1,000 UNIT TABLET PO SCH (10:02)
[2017-01-24] MEDS: MULTIVITAMIN 1 TABLET PO SCH (10:02)
[2017-01-24] MEDS: ASCORBIC ACID 500 MG TABLET PO SCH (10:03)
[2017-01-24 14:45] VITALS: BP 123/78
[2017-01-24] MEDS ORDERED: WARFARIN 5 MG TABLET PO-COUM SCH (18:00)
[2017-01-24 19:45] VITALS: BP 127/68
[2017-01-25 00:20] VITALS: BP 119/67
[2017-01-25] MEDS: OXYcodone/APAP 5/325MG TABLET PO SCH ×5 (02:15→17:51)
[2017-01-25 04:59] LABS: INTERNATIONAL NORMALIZED RATIO 2.43 (0.93-1.1); PROTHROMBIN TIME 24.6 Seconds (9.6-11.5)
[2017-01-25] MEDS: SUCRALFATE 1 GM TABLET PO SCH ×3 (05:41→16:00)
[2017-01-25 08:00] VITALS: BP 133/74
[2017-01-25] MEDS: SODIUM CHLORIDE 0.9% 1,000 ML IV SCH ×2 (08:33→16:00)
[2017-01-25] MEDS: LACTULOSE 10 GM/15 ML UDC PO SCH ×2 (08:33→16:00)
[2017-01-25] MEDS: CHOLECALCIFEROL 1,000 UNIT TABLET PO SCH (08:34)
[2017-01-25] MEDS: ASCORBIC ACID 500 MG TABLET PO SCH (08:34)
[2017-01-25] MEDS: MULTIVITAMIN 1 TABLET PO SCH (08:35)
[2017-01-25] MEDS: GABAPENTIN 300 MG CAPSULE PO SCH ×2 (08:35→16:52)
[2017-01-25] MEDS: OXYBUTYNIN CHLORIDE 5 MG TABLET PO SCH (08:35)
[2017-01-25] MEDS: PANTOPROZOLE 40MG TABLET PO SCH ×2 (08:36→16:54)
[2017-01-25] MEDS: FLUTICASONE/VILANTEROL 200-25MCG/INH INH SCH (08:37)
[2017-01-25] MEDS: AMOXICILLIN/CLAV 875-125MG TABLET PO SCH (08:37)
[2017-01-25 14:00] VITALS: BP 122/56
[2017-01-25] MEDS ORDERED: WARFARIN 5 MG TABLET PO-COUM SCH (18:00)
== END 2017-01-25 18:45 | DRG 843 ==
LOC: ED 19:16 → EDIP 19:20 → 3NW 21:29
PROVIDERS: ADMIT Hospitalist; ATTEND Hospitalist
DX: C79.89 Secondary malignant neoplasm of other specified sites (principal); E43 Unspecified severe protein-calorie malnutrition; I82.412 Acute embolism and thrombosis of left femoral vein; G62.9 Polyneuropathy, unspecified; L03.314 Cellulitis of groin; J44.9 Chronic obstructive pulmonary disease, unspecified; R26.2 Difficulty in walking, not elsewhere classified; Z85.72 Personal history of non-Hodgkin lymphomas; G47.30 Sleep apnea, unspecified; K21.9 Gastro-esophageal reflux disease without esophagitis; N28.9 Disorder of kidney and ureter, unspecified; Z79.01 Long term (current) use of anticoagulants; Z85.44 Personal history of malignant neoplasm of other female genital organs; Z87.891 Personal history of nicotine dependence; Z88.2 Allergy status to sulfonamides; Z88.8 Allergy status to other drugs, medicaments and biological substances; Z51.0 Encounter for antineoplastic radiation therapy
CPT/HCPCS: 36415; 71010; 77336; 77387; 77412; 80048; 82040; 85025; 85610; 96365; 96375; J0295; J2405; Q0162; J7030